=== PATIENT | female | born 1935 | race Caucasian/White ===

== ENCOUNTER 2018-11-12 07:45 | Inpatient (IN) | payer MEDICARE, OTHER ==
[2018-11-03 13:59] VITALS: BP 121/70
[2018-11-03 14:37] LABS: BASOPHIL % 0.2 % (0.0-0.2); EOSINOPHIL # 0.1 10^3/uL (0.0-0.2); HEMOGLOBIN 15.4 g/dL (12.0-15.0); LYMPHOCYTES # 0.9 10^3/uL (1.0-4.8); LYMPHOCYTES % 9.4 % (24.0-44.0); MEAN CELL HGB 27.7 pg (26-34); MEAN CELL HGB CONCENTRATION 34.1 g/dL (33-37); MEAN CORP VOLUME 81.1 fL (78-100); MEAN PLATELET VOLUME 10.2 fL (7.8-11.0); MONOCYTES # 0.8 10^3/uL (0.3-0.8); MONOCYTES % 8.3 % (5.0-12.0); NEUTROPHIL # 7.7 10^3/uL (1.8-7.7); NEUTROPHILS % 80.4 % (41.0-85.0); RED CELL DISTRIBUTION WIDTH 17.7 % (11.5-14.5); WHITE BLOOD CELL 9.6 10^3/uL (4.5-11.0)
[2018-11-03 15:00] LABS: CALCIUM 8.6 mg/dL (8.4-10.5)
[2018-11-12] VITALS (9 sets, daily range): BP systolic 116–144; BP diastolic 47–90
[~2018-11-12] VITALS: Ht 162.6 cm; Wt 57.2 kg
[2018-11-12] MEDS: LACTATED RINGERS 1,000 ML IV SCH ×2 (06:05→21:52)
[2018-11-12 06:13] LABS: BILIRUBIN,URINE NEGATIVE (NEGATIVE); UROBILINOGEN,URINE NORMAL (NEGATIVE)
[2018-11-12 06:23] LABS: UA COLOR YELLOW (YELLOW)
[2018-11-12 06:24] LABS: APPEARANCE,URINE CLEAR (CLEAR)
[~2018-11-12 07:45] MED LIST: ACET500T73 PO; ALBU1.25 IH; ALBU2.5V12 IH; AMOX1TAB12 PO; ANCEF 2 GM/D5W 50ML 50 ML IV ONE; BENZ100C PO; CYCL10TA2 PO; DECADRON ONE; DILAUDID ONE; DIPRIVAN IV ONE; LIDOCAINE 2% VIAL ONE; MOME220A9 IH; NEOSTIGMINE ONE; NS 100ML 100 ML IV ONE; NS 250ML 250 ML IV ONE; NS 3000ML IRR IR ONE; OXYC10TA2 PO; PRECEDEX IV ONE; SENSORCAINE 0.5% VIAL ONE; SERT50TA PO; SIMV20TA PO; SODIUM CHLORIDE IR ONE; SUBLIMAZE ONE; TORADOL ONE; TRAM-47 PO; TRANEXAMIC ACID IV ONE; UMEC1DIS IH; VARE1TAB20 PO; ZEMURON IV ONE; ZOFRAN ONE
[2018-11-12] MEDS ORDERED: SODIUM CHLORIDE IR ONE (09:30)
[2018-11-12] MEDS ORDERED: TRANEXAMIC ACID IV ONE (11:11)
[2018-11-12] MEDS ORDERED: LACTATED RINGERS 1,000 ML ONE (11:42)
[2018-11-12] MEDS ORDERED: PHENERGAN IV PRN (12:30)
[2018-11-12] MEDS ORDERED: DILAUDID IV PRN (12:30)
[2018-11-12] MEDS ORDERED: VENTOLIN IH PRN (12:30)
[2018-11-12] MEDS: TYLENOL PO SCH ×2 (12:30→17:29)
[2018-11-12] MEDS ORDERED: SUBLIMAZE IV PRN (12:30)
[2018-11-12] MEDS ORDERED: LACTATED RINGERS 1,000 ML IV SCH (12:30)
[2018-11-12] MEDS ORDERED: ZOFRAN IV PRN (12:30)
[2018-11-12] MEDS ORDERED: CEPACOL SORE THROAT LOZENGE MM PRN (12:30)
--- NOTE | 2018-11-12 12:33 | DIREP ---
PROCEDURE:XRAY HIP MIN 2VW-LT COMPARISON:None. INDICATIONS:POST TOTAL LEFT HIP FINDINGS: BONES:No fractures. JOINTS:The patient has had left hip arthroplasty with cemented femoral prosthesis. The hardware is in good position. SOFT TISSUES:Air is present in the lateral soft tissues. Lateral skin marcelino are in place. There are scattered calcific densities in the left gluteal region consistent with injection granulomas. OTHER:Prior lumbar spine surgery with pedicle screw identified. CONCLUSION:The patient has had left hip arthroplasty with no complications. Dictated by: Venu Russ M.D. on 11/12/2018 at 12:30 PM
--- NOTE | 2018-11-12 12:36 | HPH ---
ADMIT DATE: 11/12/2018 HISTORY OF PRESENT ILLNESS: An 83-year-old female who had open reduction and internal fixation of a left intertrochanteric hip fracture in 08/2014. 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 She was having severe pain with ambulation. The patient's intertrochanteric hip fracture healed. PAST MEDICAL HISTORY: The patient's medical problems include COPD. She also has a history of cigarette abuse. MEDICATIONS: Include Chantix, Zocor 20 mg a day, Zoloft 50 mg once a day, Advair, calcium and vitamin D as well as vitamin C. PREVIOUS SURGICAL PROCEDURES: Include back surgery x 2, tonsillectomy, cholecystectomy, left rotator cuff repair, ORIF left hip as above. ALLERGIES: THE PATIENT IS ALLERGIC TO MORPHINE. SOCIAL HISTORY: The patient lives on the [facility]. She states that she smoked 1 pack of cigarettes a day for 65 years, but stopped smoking about 2-1/2 months ago. She drinks one glass of wine a day. REVIEW OF SYSTEMS: Positive for occasional shortness of breath. She has to use a walker to ambulate because of pain. Otherwise negative for chest pain, nausea, vomiting, melena, hematochezia, dysuria, hematuria, fever, chills, or weight loss. FAMILY HISTORY: Unknown. PHYSICAL EXAMINATION: GENERAL: Shows a 5 feet 4 inches, 136 pounds. An 83-year-old female in no acute distress. HEENT: Within normal limits for her age. CHEST: Her chest has mild wheezes, but generally clear to auscultation bilaterally. HEART: Regular rate and rhythm. ABDOMEN: Soft, nontender, good bowel sounds. EXTREMITIES: Left hip can be flexed to 90 degrees. She has no internal or external rotation. Mild shortening. NEUROLOGIC: The patient is awake and alert. She is oriented x 3. Cranial nerves 2-12 are grossly intact. She has 5/5 strength of all lower extremities bilaterally, symmetric for her age. IMAGING STUDIES: The x-rays show that she has avascular necrosis of the femoral head with collapse and impingement in the acetabulum of her internal fixation screws. Otherwise, her intertrochanteric fracture is healed. ASSESSMENT: 1. Avascular necrosis, left femoral head. 2. Complication of deep hardware. PLAN: The patient is admitted for deep hardware removal as well as bipolar arthroplasty. She was evaluated by Dr. Vieyra preoperatively. The risks and hazards of the procedures have been discussed with the family and they are in agreement. Ozzie Churchill MD DR: KAYLEIGH/abril JOB# [id number]
--- NOTE | 2018-11-12 12:52 | OPH ---
DATE OF SURGERY: 11/12/2018 PREOPERATIVE DIAGNOSES: 1. Avascular necrosis, left femoral head. 2. Complication of mechanical internal device, left hip. POSTOPERATIVE DIAGNOSES: 1. Avascular necrosis, left femoral head. 2. Complication of mechanical internal device, left hip. OPERATIVE PROCEDURES: 1. Deep hardware removal, left femur. 2. Bipolar arthroplasty, left hip using Medacta AMIS cemented size 0, femoral stem with a 28 mm cobalt chrome head and a 48 bipolar cup. SURGEON: Ozzie Churchill MD. ANESTHESIA: General endotracheal. BLOOD LOSS: 600 mL. DRAINS: None. DESCRIPTION OF INDICATIONS: The patient is an 83-year-old female with avascular necrosis of the left femoral head following ORIF of an intertrochanteric fracture of her left hip in 2013. The fracture is healed; however, the head developed avascular necrosis with collapse. The patient had severe pain with any types of ambulation and therefore was taken to the operating room for the above procedure. DESCRIPTION OF PROCEDURE: The patient was placed on the operating table in the supine position. General endotracheal anesthetic was induced without difficulty. The patient had the left distal femur and knee prepped sterilely and draped. Using the C-arm, we located the two distal interlocking screws and made two small stab holes and removed both of the distal interlocking screws. The wounds were irrigated and closed with marcelino and a compressive dressing was applied. The patient then had the left foot and ankle well padded and placed in the traction boot. The patient then had the traction boot attached to the MIS leg extension. Left lower extremity was then sterilely prepped and draped. We made an incision about the lateral tips of the two screws at the base of the greater trochanter and removed the two screws without incident. The bleeding was controlled with cautery. The IT band was closed with a #1 Vicryl in an interrupted manner. The subcutaneous was closed with a 2-0 Monocryl after being thoroughly irrigated. The skin was closed with marcelino. We then made a second incision about the tip of the greater trochanter through the skin and subcutaneous tissues. Bleeding was controlled with cautery. The patient had the IT band opened in line with the skin incision. The tip of the claudia was identified and the soft tissue was cleared. The claudia extractor was then screwed into the proximal tip of the claudia and then removed without incident. The wounds were irrigated and closed with #1 Vicryl for the IT band. The subcutaneous was closed with 2-0 Monocryl and the skin was closed with marcelino. The patient then had the anterior incision made about the hip. The incision was taken through the skin and the subcutaneous tissues. Bleeding was controlled with cautery. Tensor fascia was opened and the muscle belly was reflected laterally. The patient had the rectus fascia opened. The rectus muscle was retracted medially. The circumflex vessels were identified and coagulated with the Aquamantys device. The patient then had the fat pad of the capsule excised anteriorly. The capsular incision was incised and the capsule was retracted proximally and laterally. The patient then had the femoral neck cut made. The head was removed with a corkscrew device. The patient then had the proximal femur opened with a curette as well as a box chisel once the hip was placed in maximal external rotation. The acetabulum had been sized and the size 48 bipolar cup had good coverage and was stable. The patient then had the proximal femur opened with the starter rasp. Because of the previous claudia, the patient's canal medially was very hard and sclerotic from the intramedullary claudia that was placed. We were able to rasp the femur up to a size 0. We did a trial reduction with a 0 stem and a neutral neck length with the 48 bipolar cup. There was good stability. The patient then had the trial components removed. The proximal femur was irrigated and the cement plug was placed at 12 cm. The cement was introduced and packed. The patient had a size 0 femoral stem cemented. Again the trial reduction done with a trial head and neck and there was good stability. The patient had a size 28 mm neutral neck length with the 48 bipolar cup impacted onto the Bergman taper neck once the cement had hardened. Any excess cement around the trochanter was removed. The final x-rays showed satisfactory positioning of the hardware and satisfactory leg length. The capsule was then closed with a #2 PDS in an interrupted manner. The tensor fascia was closed with a #2 PDS barbed in a running manner and the subcutaneous was closed with 2-0 Monocryl in a running manner. The skin was closed with marcelino. The patient had the wounds covered with Aquacel dressings. She was extubated in the operating room and sent to recovery in stable condition. Ozzie Churchill MD DR: KAYLEIGH/abril JOB# [id number]
[2018-11-12] MEDS ORDERED: NS 100ML 100 ML IV ONE (12:58)
--- NOTE | 2018-11-12 13:29 | PRM.PN ---
Subjective Subjective Date: Nov 12, 2018 Time: 13:28 Subjective Awake and alert VSS NVM+ Stable Patient History: Alzheimer's disease 32 MOTHER, , Age:94 33 FATHER, , Age:92 Cerebrovascular disorder G8 BROTHER, Degenerative joint disease V19 CHILD Diabetes mellitus V19 CHILD V19 CHILD V19 CHILD FH: arthritis V19 CHILD FH: liver cancer G8 SISTER, , Age:50 FH: pancreatic cancer G8 SISTER, , Age:50 GERD V19 CHILD High cholesterol V19 CHILD No known health problems G8 BROTHER G8 BROTHER G8 BROTHER No Family History of: Asthma Chronic obstructive pulmonary disease Congestive heart failure Diabetes insipidus Hypertension Parkinson's disease VTE VTE Risk Total Score: 5 VTE Risk Score VTE Risk: Score 0-1 = Low Risk (Aggressive mobilization; early ambulation; no VTE prophylaxis required) Score 2: Moderate Risk (Intermittent/Pneumatic Compression Device OR Lovenox/Heparin/Coumadin) Score 3-4: High Risk (Intermittent/Pneumatic Compression Device AND Lovenox/Heparin/Coumadin) Score > or =5: Highest Risk (Intermittent/Pneumatic Compression Device AND Lovenox/Heparin/Coumadin) Review of Systems Allergies: Coded Allergies: morphine (Verified Allergy, Unknown, NAUSEA,VOMITING, 11/03/18) Scheduled Albuterol Sulfate (Albuterol Sulfate), 2.5 MG IH BID, (Reported) Albuterol Sulfate (Albuterol Sulfate), 1.25 MG IH BID, (Reported) Cyclobenzaprine Hcl (Flexeril), 1 TAB PO BID, (Reported) Mometasone Furoate (Asmanex), 2 PUFF IH BID, (Reported) Oxycodone Hcl (Oxycodone Hcl), 1 TAB PO BID, (Reported) Sertraline Hcl (Zoloft), 1 TAB PO DAILY, (Reported) Simvastatin (Zocor), 1 TAB PO HS, (Reported) Umeclidinium Brm/Vilanterol Tr (Anoro Ellipta 62.5-25 Mcg INH), 1 EACH IH DAILY24, (Reported) Varenicline Tartrate (Chantix), 1 EACH PO BID, (Reported) Scheduled PRN Acetaminophen (Acetaminophen), 2 TAB PO DAILY24 PRN for PAIN, (Reported) Tramadol Hcl (Ultram), 1 TAB PO BID PRN for PAIN, (Reported) Discontinued Medications Amoxicillin/Potassium Clav (Amox Tr-K Clv 875-125 Mg Tab), 1 TAB PO BID, ( Reported) Discontinued Reason: No Longer Taking Benzonatate (Tessalon Perle), 1 CAP PO TID, (Reported) Discontinued Reason: No Longer Taking Objective Vitals and I/O Vital Sign - Last 24 Hours 11/12/18 11/12/18 11/12/18 11/12/18 05:50 05:50 07:15 07:20 Temp 99.1 99.1 Pulse 115 89 98 Resp 18 18 18 B/P (MAP) 121/72 (88) 134/80 (98) 116/47 (70) Pulse Ox 94 90 95 O2 Delivery Room Air Room Air Nasal Canula Nasal Canula O2 Flow Rate 3 3 11/12/18 11/12/18 11/12/18 11/12/18 07:25 12:07 12:07 12:22 Temp 98.2 98.6 98.2 98.6 Pulse 87 92 85 Resp 18 16 18 B/P (MAP) 119/64 (82) 139/89 (106) 144/82 (102) Pulse Ox 95 97 93 O2 Delivery Nasal Canula Non-Rebreather Nasal Canula O2 Flow Rate 3 10 10 3 11/12/18 11/12/18 12:36 12:52 Temp 99 99.2 99.0 99.2 Pulse 110 97 Resp 18 18 B/P (MAP) 125/90 (102) 125/81 (96) Pulse Ox 93 93 O2 Delivery Nasal Canula Nasal Canula O2 Flow Rate 3 3 All Results(Lab/Rad) Laboratory Tests Test 11/12/18 04:30 Urine Collection Type VOID Urine Color YELLOW Urine Appearance CLEAR Urine Bilirubin NEGATIVE MG/DL Urine Ketones NEGATIVE Urine Specific [place] 1.010 Urine pH 6 Urine Protein NEGATIVE Urine Urobilinogen NORMAL Urine Nitrate NEGATIVE Urine Leukocyte Esterase 100/ul 1+ Urine Blood 10 TR Urine RBC 0-2 RBC/HPF Urine WBC 2-5 WBC/HPF Urine Squamous Epithelial Cells MANY #/HPF Urine Bacteria NONE SEEN Urine Glucose NORMAL Current Medications Medications (Trade) Dose Ordered Sig/Lianna Route PRN Reason Start Time Stop Time Status Last Admin Dose Admin Sodium Chloride 100 ml @ ud STK-MED ONCE IV 11/12/18 05:14 11/12/18 05:16 DC Cefazolin Sodium/ Dextrose 50 ml @ ud STK-MED ONCE IV 11/12/18 05:15 11/12/18 05:17 DC Neostigmine Methylsulfate (Neostigmine) 10 mg STK-MED ONCE .ROUTE 11/12/18 06:47 11/12/18 06:49 DC Ondansetron HCl (Zofran) 4 mg STK-MED ONCE .ROUTE 11/12/18 06:47 11/12/18 06:49 DC Ketorolac Tromethamine (Toradol) 30 mg STK-MED ONCE .ROUTE 11/12/18 06:47 11/12/18 06:49 DC Rocuronium [place] (Zemuron) 100 mg STK-MED ONCE IV 11/12/18 06:47 11/12/18 06:49 DC Hydromorphone HCl (Dilaudid) 2 mg STK-MED ONCE .ROUTE 11/12/18 06:47 11/12/18 06:49 DC Fentanyl Citrate (Sublimaze) 100 mcg STK-MED ONCE .ROUTE 11/12/18 06:48 11/12/18 06:50 DC Propofol (Diprivan) 200 mg STK-MED ONCE IV 11/12/18 06:48 11/12/18 06:50 DC Dexamethasone Sodium Phosphate (Decadron) 20 mg STK-MED ONCE .ROUTE 11/12/18 06:48 11/12/18 06:50 DC Bupivacaine HCl (Sensorcaine 0.5% Vial) 5 mg STK-MED ONCE .ROUTE 11/12/18 06:48 11/12/18 06:50 DC Lidocaine HCl (Lidocaine 2% Vial) 500 mg STK-MED ONCE .ROUTE 11/12/18 06:49 11/12/18 06:50 DC Dexmedetomidine HCl (Precedex) 200 mcg STK-MED ONCE IV 11/12/18 06:49 11/12/18 06:51 DC Sodium Chloride (Sodium Chloride) 1,000 ml STK-MED ONCE IR 11/12/18 07:29 11/12/18 07:31 DC Sodium Chloride 100 ml @ ud STK-MED ONCE IV 11/12/18 07:29 11/12/18 07:31 DC Sodium Chloride 250 ml @ ud STK-MED ONCE IV 11/12/18 07:29 11/12/18 07:31 DC Sodium Chloride (NS 3000ml Irr) 3,000 ml STK-MED ONCE IR 11/12/18 07:29 11/12/18 07:31 DC Tranexamic Acid (Tranexamic Acid) 1,000 mg STK-MED ONCE IV 11/12/18 07:41 11/12/18 07:43 DC Sodium Chloride (Sodium Chloride) 1,000 ml STK-MED ONCE IR 11/12/18 09:30 11/12/18 09:32 DC Tranexamic Acid (Tranexamic Acid) 1,000 mg STK-MED ONCE IV 11/12/18 11:11 11/12/18 11:13 DC Acetaminophen (Tylenol) 1,000 mg Q6H PO 11/12/18 12:30 12/12/18 12:29 UNV Celecoxib (Celebrex) 200 mg Q12HR PO 11/12/18 21:00 11/12/18 21:01 UNV Gabapentin (Neurontin) 400 mg Q24HRS PO 11/13/18 12:30 11/13/18 12:31 UNV Hydromorphone HCl (Dilaudid) 0.2 mg Q5MIN PRN IV PAIN MILD 11/12/18 12:30 11/13/18 12:29 UNV Fentanyl Citrate (Sublimaze) 12.5 mcg Q5MIN PRN IV PAIN 11/12/18 12:30 11/13/18 12:29 UNV Ondansetron HCl (Zofran) 4 mg PRN PRN IV nv 11/12/18 12:30 11/17/18 12:29 UNV Promethazine HCl (Phenergan) 6.25 mg PRN PRN IV NAUSEA / VOMITING 11/12/18 12:30 11/17/18 12:29 UNV Albuterol Sulfate (Ventolin) 2.5 mg OT PRN IH WHEEZING 11/12/18 12:30 11/17/18 12:29 UNV Tramadol HCl (Ultram) 50 mg Q6H PRN PO MILD PAIN 11/12/18 12:30 12/12/18 12:29 UNV Tramadol HCl (Ultram) 100 mg Q6H PRN PO SEVERE PAIN 11/12/18 12:30 12/12/18 12:29 UNV Rivaroxaban (Xarelto) 10 mg DAILY PO 11/14/18 09:00 12/14/18 08:59 UNV Docusate Sodium (Colace) 100 mg DAILY PO 11/13/18 09:00 12/13/18 08:59 UNV Throat Lozenges (Cepacol Sore Throat Lozenge) 1 each PRN PRN MM SORE THROAT 11/12/18 12:30 12/12/18 12:29 UNV Famotidine (Pepcid) 20 mg DAILY PO 11/13/18 09:00 12/13/18 08:59 UNV Cefazolin Sodium/ Dextrose (Ancef 2 Gm/D5W 50ml) 2 gm Q8 IV 11/12/18 14:00 11/13/18 06:01 UNV Ketorolac Tromethamine (Toradol) 30 mg Q6HR PRN IV PAIN 11/12/18 12:30 11/17/18 12:29 UNV Sodium Chloride 100 ml @ ud STK-MED ONCE IV 11/12/18 12:58 11/12/18 13:00 DC Course Vitals & review Data Vital Sign - Last 24 Hours 11/12/18 11/12/18 11/12/18 11/12/18 05:50 05:50 07:15 07:20 Temp 99.1 99.1 Pulse 115 89 98 Resp 18 18 18 B/P (MAP) 121/72 (88) 134/80 (98) 116/47 (70) Pulse Ox 94 90 95 O2 Delivery Room Air Room Air Nasal Canula Nasal Canula O2 Flow Rate 3 3 11/12/18 11/12/18 11/12/18 11/12/18 07:25 12:07 12:07 12:22 Temp 98.2 98.6 98.2 98.6 Pulse 87 92 85 Resp 18 16 18 B/P (MAP) 119/64 (82) 139/89 (106) 144/82 (102) Pulse Ox 95 97 93 O2 Delivery Nasal Canula Non-Rebreather Nasal Canula O2 Flow Rate 3 10 10 3 11/12/18 11/12/18 12:36 12:52 Temp 99 99.2 99.0 99.2 Pulse 110 97 Resp 18 18 B/P (MAP) 125/90 (102) 125/81 (96) Pulse Ox 93 93 O2 Delivery Nasal Canula Nasal [place]ula O2 Flow Rate 3 3 Laboratory Tests Test 11/12/18 04:30 Urine Collection Type VOID Urine Color YELLOW Urine Appearance CLEAR Urine Bilirubin NEGATIVE MG/DL Urine Ketones NEGATIVE Urine Specific [place] 1.010 Urine pH 6 Urine Protein NEGATIVE Urine Urobilinogen NORMAL Urine Nitrate NEGATIVE Urine Leukocyte Esterase 100/ul 1+ Urine Blood 10 TR Urine RBC 0-2 RBC/HPF Urine WBC 2-5 WBC/HPF Urine Squamous Epithelial Cells MANY #/HPF Urine Bacteria NONE SEEN Urine Glucose NORMAL Current Medications Medications (Trade) Dose Ordered Sig/Lianna PRN Reason Start Time Stop Time Status Last Admin Acetaminophen (Tylenol) 1,000 mg Q6H 11/12/18 12:30 12/12/18 12:29 UNV Albuterol Sulfate (Ventolin) 2.5 mg OT PRN WHEEZING 11/12/18 12:30 11/17/18 12:29 UNV Cefazolin Sodium/ Dextrose (Ancef 2 Gm/D5W 50ml) 2 gm Q8 11/12/18 14:00 11/13/18 06:01 UNV Celecoxib (Celebrex) 200 mg Q12HR 11/12/18 21:00 11/12/18 21:01 UNV Docusate Sodium (Colace) 100 mg DAILY 11/13/18 09:00 12/13/18 08:59 UNV Famotidine (Pepcid) 20 mg DAILY 11/13/18 09:00 12/13/18 08:59 UNV Fentanyl Citrate (Sublimaze) 12.5 mcg Q5MIN PRN PAIN 11/12/18 12:30 11/13/18 12:29 UNV Gabapentin (Neurontin) 400 mg Q24HRS 11/13/18 12:30 11/13/18 12:31 UNV Hydromorphone HCl (Dilaudid) 0.2 mg Q5MIN PRN PAIN MILD 11/12/18 12:30 11/13/18 12:29 UNV Ketorolac Tromethamine (Toradol) 30 mg Q6HR PRN PAIN 11/12/18 12:30 11/17/18 12:29 UNV Ondansetron HCl (Zofran) 4 mg PRN PRN nv 11/12/18 12:30 11/17/18 12:29 UNV Promethazine HCl (Phenergan) 6.25 mg PRN PRN NAUSEA / VOMITING 11/12/18 12:30 11/17/18 12:29 UNV Rivaroxaban (Xarelto) 10 mg DAILY 11/14/18 09:00 12/14/18 08:59 UNV Throat Lozenges (Cepacol Sore Throat Lozenge) 1 each PRN PRN SORE THROAT 11/12/18 12:30 12/12/18 12:29 UNV Tramadol HCl (Ultram) 50 mg Q6H PRN MILD PAIN 11/12/18 12:30 12/12/18 12:29 UNV Tramadol HCl (Ultram) 100 mg Q6H PRN SEVERE PAIN 11/12/18 12:30 12/12/18 12:29 UNV O2 Sat by Pulse Oximetry: 93 Oxygen Flow Rate: 3 STEPHEN CANNON MD Nov 12, 2018 13:29
[2018-11-12] MEDS ORDERED: ANCEF 2 GM/D5W 50ML IV SCH (14:00)
[2018-11-12] MEDS: ANCEF 2 GM/D5W 50ML 50 ML IV SCH ×2 (14:17→21:53)
[2018-11-12] MEDS: ULTRAM PO PRN (15:45)
[2018-11-12 16:15] LABS: HEMOGLOBIN 12.7 g/dL (12.0-15.0); MEAN CELL HGB 27.3 pg (26-34); MEAN CELL HGB CONCENTRATION 33.1 g/dL (33-37); MEAN CORP VOLUME 82.4 fL (78-100); MEAN PLATELET VOLUME 9.9 fL (7.8-11.0); RED CELL DISTRIBUTION WIDTH 16.9 % (11.5-14.5); WHITE BLOOD CELL 14.1 10^3/uL (4.5-11.0)
[2018-11-12] MEDS ORDERED: CELEBREX ONE (19:55)
--- NOTE | 2018-11-12 20:00 | NUR ---
PATIENT AWAKE AND ALERT LYING IN BED. DAUGHTER AT BEDSIDE. PATIENT REPORTS PAIN IS A 5. REPORTS SHE ATTEMPTED TO GET UP WITH PHYSICAL THERAPY TODAY BUT WAS UNABLE. PATIENT STATES "I WAS JUST TOO WEAK AND I JUST COULD NOT EVEN STAND UP ON MY GOOD LEG." DRESSING CLEAN DRY AND INTACT. IV PATENT IN RT WRIST WITH LR INFUSING AT 100CC/HR VIA PUMP. NEGATIVE S/S INFILTRATION PRESENT. PATIENT WITH 02 PER NC AT 1L. HUERTA PATENT AND DRAINING YELLOW URINE. SECURED TO RIGHT THIGH. TELE [address] SPECIAL VS COMPLETED AND STABLE. NO DISTRESS NOTED AND PATIENT DENIES UNMET NEEDS.
[2018-11-12] MEDS: TORADOL IV PRN (20:02)
[2018-11-12] MEDS ORDERED: CELEBREX PO SCH (21:00)
--- NOTE | 2018-11-13 | NUR ---
PATIENT SLEEPING WITHOUT S/S DISTRESS. AWAKENS EASILY AND DENIES PAIN OR DISCOMFORT. DAUGHTER SLEEPING AT BEDSIDE.
[2018-11-13] MEDS: TYLENOL PO SCH ×5 (00:30→23:53)
[2018-11-13 00:51] VITALS: BP 118/88
[2018-11-13 05:38] LABS: HEMOGLOBIN 10.9 g/dL (12.0-15.0); MEAN CELL HGB 26.9 pg (26-34); MEAN CELL HGB CONCENTRATION 32.6 g/dL (33-37); MEAN CORP VOLUME 82.5 fL (78-100); RED CELL DISTRIBUTION WIDTH 16.8 % (11.5-14.5); WHITE BLOOD CELL 9.6 10^3/uL (4.5-11.0)
--- NOTE | 2018-11-13 07:00 | NUR ---
PATIENT HAS SLEPT WITHOUT NEED FOR ADDITIONAL PAIN MEDS THIS SHIFT. PATIENT AWAKENS AND SMILES AND EXPRESSES COMFORT AND RETURNS TO SLEEP. NO DISTRESS NOTED.
[2018-11-13] MEDS: ANCEF 2 GM/D5W 50ML 50 ML IV SCH (07:03)
--- NOTE | 2018-11-13 07:48 | NUR ---
REPORT RECEIVED REPORT, ASSUMED CARE FOR PATIENT AT THIS TIME.
[2018-11-13 08:43] VITALS: BP 112/72
[2018-11-13] MEDS: PEPCID PO SCH (08:46)
[2018-11-13] MEDS: COLACE PO SCH (08:46)
[2018-11-13] MEDS: ULTRAM PO PRN ×2 (09:33→14:39)
--- NOTE | 2018-11-13 11:26 | NUR ---
DISCHARGE PLANNING CM VISITED WITH PATIENT AND DAUGHTER REGARDING D/C NEEDS. PATIENT STATES SHE WAS PREVIOUSLY INDEPENDENT OF ADLS. STATED SHE LIVED AT HOME IN [place] ALONE. SHE IS ONLY HERE TO GET HER SURGERY AND SHE WILL GO BACK TO [place]. SHE DOES HAVE DME IN PLACE INCLUDING A WALKER. SHE STATE SHE WOULD LIKE TO GO TO [place] SWING BED ON D/C, CHOICE LETTER SIGNED AND PLACED IN CHART. REFERRAL SENT AND PENDING APPROVAL. D/C GOAL IS FOR PATIENT TO D/C TO [facility] FOR THERAPY SERVICES. UPON D/C NURSE WILL NEED TO CALL REPORT TO THE CHARGE NURSE @ [phone]. PATIENT DENIES FURTHER NEEDS AT THIS TIME. CM WILL CONTINUE TO FOLLOW PT FOR ANY FURTHER NEEDS.
[2018-11-13] MEDS ORDERED: NEURONTIN PO SCH (12:30)
[2018-11-13 12:32] VITALS: BP 115/68
--- NOTE | 2018-11-13 13:50 | NUR ---
Anesthesia Post Op Visit Ms. Barajas had a Left Fascia Iliaca Block for a Left Hip Replacement Yesterday. I visited with her and she said she had full sensation in her leg and foot, had been ambulating quite a bit today and at the most, her pain rated a 3. She has taken P.O. pain medications but very few and is very happy with her post op course. No indications of redness swelling or pain at injection site. No apparent post anesthetic or block complications
[2018-11-13 18:19] VITALS: BP 149/86
--- NOTE | 2018-11-13 18:26 | NUR ---
report received report from offgoing shift
[2018-11-13 19:33] VITALS: BP 120/65
--- NOTE | 2018-11-13 20:05 | NUR ---
ambulated pt ambulated at this time down the hallway accompanied by nurse and family member. Pt. walked fairly
[2018-11-14 00:52] VITALS: BP 126/73
[2018-11-14 04:25] VITALS: BP 126/66
[2018-11-14] MEDS: LACTATED RINGERS 1,000 ML IV SCH (05:53)
[2018-11-14] MEDS: TYLENOL PO SCH ×4 (05:54→23:42)
[2018-11-14 06:34] LABS: MEAN CELL HGB 27.3 pg (26-34); MEAN CELL HGB CONCENTRATION 32.7 g/dL (33-37); MEAN CORP VOLUME 83.6 fL (78-100); MEAN PLATELET VOLUME 10.1 fL (7.8-11.0); RED CELL DISTRIBUTION WIDTH 17.2 % (11.5-14.5)
--- NOTE | 2018-11-14 07:03 | NUR ---
REPORT RECEIVED REPORT, ASSUMED CARE FOR PATIENT AT THIS TIME.
--- NOTE | 2018-11-14 08:00 | NUR ---
HUERTA DISCONTINUED AT THIS TIME.
--- NOTE | 2018-11-14 08:40 | NUR ---
PATIENT VOIDED 400CC AT THIS TIME.
[2018-11-14] MEDS: COLACE PO SCH (09:00)
--- NOTE | 2018-11-14 09:03 | PRM.PN ---
Subjective Subjective Date: Nov 14, 2018 Time: 09:03 Subjective Awake and alert VSS NVM+ Stable 11/13 Pain ok in bed VSS NVM+ HGB 10.9 postop anemia from blood loss expected Start PT 11/14 Making progress with PT VSS HGB 10 Dressing ok Cont with PT Patient History: Alzheimer's disease 32 MOTHER, , Age:94 33 FATHER, , Age:92 Cerebrovascular disorder G8 BROTHER, Degenerative joint disease V19 CHILD Diabetes mellitus V19 CHILD V19 CHILD V19 CHILD FH: arthritis V19 CHILD FH: liver cancer G8 SISTER, , Age:50 FH: pancreatic cancer G8 SISTER, , Age:50 GERD V19 CHILD High cholesterol V19 CHILD No known health problems G8 BROTHER G8 BROTHER G8 BROTHER No Family History of: Asthma Chronic obstructive pulmonary disease Congestive heart failure Diabetes insipidus Hypertension Parkinson's disease VTE VTE Risk Total Score: 5 VTE Risk Score VTE Risk: Score 0-1 = Low Risk (Aggressive mobilization; early ambulation; no VTE prophylaxis required) Score 2: Moderate Risk (Intermittent/Pneumatic Compression Device OR Lovenox/Heparin/Coumadin) Score 3-4: High Risk (Intermittent/Pneumatic Compression Device AND Lovenox/Heparin/Coumadin) Score > or =5: Highest Risk (Intermittent/Pneumatic Compression Device AND Lovenox/Heparin/Coumadin) Review of Systems Allergies: Coded Allergies: morphine (Verified Allergy, Unknown, NAUSEA,VOMITING, 11/03/18) Scheduled Albuterol Sulfate (Albuterol Sulfate), 2.5 MG IH BID, (Reported) Albuterol Sulfate (Albuterol Sulfate), 1.25 MG IH BID, (Reported) Cyclobenzaprine Hcl (Flexeril), 1 TAB PO BID, (Reported) Mometasone Furoate (Asmanex), 2 PUFF IH BID, (Reported) Oxycodone Hcl (Oxycodone Hcl), 1 TAB PO BID, (Reported) Sertraline Hcl (Zoloft), 1 TAB PO DAILY, (Reported) Simvastatin (Zocor), 1 TAB PO HS, (Reported) Umeclidinium Brm/Vilanterol Tr (Anoro Ellipta 62.5-25 Mcg INH), 1 EACH IH DAILY24, (Reported) Varenicline Tartrate (Chantix), 1 EACH PO BID, (Reported) Scheduled PRN Acetaminophen (Acetaminophen), 2 TAB PO DAILY24 PRN for PAIN, (Reported) Tramadol Hcl (Ultram), 1 TAB PO BID PRN for PAIN, (Reported) Discontinued Medications Amoxicillin/Potassium Clav (Amox Tr-K Clv 875-125 Mg Tab), 1 TAB PO BID, ( Reported) Discontinued Reason: No Longer Taking Benzonatate (Tessalon Perle), 1 CAP PO TID, (Reported) Discontinued Reason: No Longer Taking Objective Vitals and I/O Vital Sign - Last 24 Hours 11/12/18 11/12/18 11/12/18 11/12/18 05:50 05:50 07:15 07:20 Temp 99.1 99.1 Pulse 115 89 98 Resp 18 18 18 B/P (MAP) 121/72 (88) 134/80 (98) 116/47 (70) Pulse Ox 94 90 95 O2 Delivery Room Air Room Air Nasal [place] Nasal [place]ula O2 Flow Rate 3 3 11/12/18 11/12/18 11/12/18 11/12/18 07:25 12:07 12:07 12:22 Temp 98.2 98.6 98.2 98.6 Pulse 87 92 85 Resp 18 16 18 B/P (MAP) 119/64 (82) 139/89 (106) 144/82 (102) Pulse Ox 95 97 93 O2 Delivery Nasal [place] Non-Rebreather Nasal [place] O2 Flow Rate 3 10 10 3 11/12/18 11/12/18 12:36 12:52 Temp 99 99.2 99.0 99.2 Pulse 110 97 Resp 18 18 B/P (MAP) 125/90 (102) 125/81 (96) Pulse Ox 93 93 O2 Delivery Nasal [place] Nasal [place] O2 Flow Rate 3 3 All Results(Lab/Rad) Laboratory Tests Test 11/12/18 04:30 Urine Collection Type VOID Urine Color YELLOW Urine Appearance CLEAR Urine Bilirubin NEGATIVE MG/DL Urine Ketones NEGATIVE Urine Specific [place] 1.010 Urine pH 6 Urine Protein NEGATIVE Urine Urobilinogen NORMAL Urine Nitrate NEGATIVE Urine Leukocyte Esterase 100/ul 1+ Urine Blood 10 TR Urine RBC 0-2 RBC/HPF Urine WBC 2-5 WBC/HPF Urine Squamous Epithelial Cells MANY #/HPF Urine Bacteria NONE SEEN Urine Glucose NORMAL Current Medications Medications (Trade) Dose Ordered Sig/Lianna Route PRN Reason Start Time Stop Time Status Last Admin Dose Admin Sodium Chloride 100 ml @ ud STK-MED ONCE IV 11/12/18 05:14 11/12/18 05:16 DC Cefazolin Sodium/ Dextrose 50 ml @ ud STK-MED ONCE IV 11/12/18 05:15 11/12/18 05:17 DC Neostigmine Methylsulfate (Neostigmine) 10 mg STK-MED ONCE .ROUTE 11/12/18 06:47 11/12/18 06:49 DC Ondansetron HCl (Zofran) 4 mg STK-MED ONCE .ROUTE 11/12/18 06:47 11/12/18 06:49 DC Ketorolac Tromethamine (Toradol) 30 mg STK-MED ONCE .ROUTE 11/12/18 06:47 11/12/18 06:49 DC Rocuronium [place] (Zemuron) 100 mg STK-MED ONCE IV 11/12/18 06:47 11/12/18 06:49 DC Hydromorphone HCl (Dilaudid) 2 mg STK-MED ONCE .ROUTE 11/12/18 06:47 11/12/18 06:49 DC Fentanyl Citrate (Sublimaze) 100 mcg STK-MED ONCE .ROUTE 11/12/18 06:48 11/12/18 06:50 DC Propofol (Diprivan) 200 mg STK-MED ONCE IV 11/12/18 06:48 11/12/18 06:50 DC Dexamethasone Sodium Phosphate (Decadron) 20 mg STK-MED ONCE .ROUTE 11/12/18 06:48 11/12/18 06:50 DC Bupivacaine HCl (Sensorcaine 0.5% Vial) 5 mg STK-MED ONCE .ROUTE 11/12/18 06:48 11/12/18 06:50 DC Lidocaine HCl (Lidocaine 2% Vial) 500 mg STK-MED ONCE .ROUTE 11/12/18 06:49 11/12/18 06:50 DC Dexmedetomidine HCl (Precedex) 200 mcg STK-MED ONCE IV 11/12/18 06:49 11/12/18 06:51 DC Sodium Chloride (Sodium Chloride) 1,000 ml STK-MED ONCE IR 11/12/18 07:29 11/12/18 07:31 DC Sodium Chloride 100 ml @ ud STK-MED ONCE IV 11/12/18 07:29 11/12/18 07:31 DC Sodium Chloride 250 ml @ ud STK-MED ONCE IV 11/12/18 07:29 11/12/18 07:31 DC Sodium Chloride (NS 3000ml Irr) 3,000 ml STK-MED ONCE IR 11/12/18 07:29 11/12/18 07:31 DC Tranexamic Acid (Tranexamic Acid) 1,000 mg STK-MED ONCE IV 11/12/18 07:41 11/12/18 07:43 DC Sodium Chloride (Sodium Chloride) 1,000 ml STK-MED ONCE IR 11/12/18 09:30 11/12/18 09:32 DC Tranexamic Acid (Tranexamic Acid) 1,000 mg STK-MED ONCE IV 11/12/18 11:11 11/12/18 11:13 DC Acetaminophen (Tylenol) 1,000 mg Q6H PO 11/12/18 12:30 12/12/18 12:29 UNV Celecoxib (Celebrex) 200 mg Q12HR PO 11/12/18 21:00 11/12/18 21:01 UNV Gabapentin (Neurontin) 400 mg Q24HRS PO 11/13/18 12:30 11/13/18 12:31 UNV Hydromorphone HCl (Dilaudid) 0.2 mg Q5MIN PRN IV PAIN MILD 11/12/18 12:30 11/13/18 12:29 UNV Fentanyl Citrate (Sublimaze) 12.5 mcg Q5MIN PRN IV PAIN 11/12/18 12:30 11/13/18 12:29 UNV Ondansetron HCl (Zofran) 4 mg PRN PRN IV nv 11/12/18 12:30 11/17/18 12:29 UNV Promethazine HCl (Phenergan) 6.25 mg PRN PRN IV NAUSEA / VOMITING 11/12/18 12:30 11/17/18 12:29 UNV Albuterol Sulfate (Ventolin) 2.5 mg OT PRN IH WHEEZING 11/12/18 12:30 11/17/18 12:29 UNV Tramadol HCl (Ultram) 50 mg Q6H PRN PO MILD PAIN 11/12/18 12:30 12/12/18 12:29 UNV Tramadol HCl (Ultram) 100 mg Q6H PRN PO SEVERE PAIN 11/12/18 12:30 12/12/18 12:29 UNV Rivaroxaban (Xarelto) 10 mg DAILY PO 11/14/18 09:00 12/14/18 08:59 UNV Docusate Sodium (Colace) 100 mg DAILY PO 11/13/18 09:00 12/13/18 08:59 UNV Throat Lozenges (Cepacol Sore Throat Lozenge) 1 each PRN PRN MM SORE THROAT 11/12/18 12:30 12/12/18 12:29 UNV Famotidine (Pepcid) 20 mg DAILY PO 11/13/18 09:00 12/13/18 08:59 UNV Cefazolin Sodium/ Dextrose (Ancef 2 Gm/D5W 50ml) 2 gm Q8 IV 11/12/18 14:00 11/13/18 06:01 UNV Ketorolac Tromethamine (Toradol) 30 mg Q6HR PRN IV PAIN 11/12/18 12:30 11/17/18 12:29 UNV Sodium Chloride 100 ml @ STK-MED ONCE IV 11/12/18 12:58 11/12/18 13:00 DC Course Sepsis Screening Results: Posi: NEGATIVE Sepsis Qualifier/Stage: NO DEFINITE RISK Vitals & review Data Vital Sign - Last 24 Hours 11/12/18 11/12/18 11/12/18 11/12/18 05:50 05:50 07:15 07:20 Temp 99.1 99.1 Pulse 115 89 98 Resp 18 18 18 B/P (MAP) 121/72 (88) 134/80 (98) 116/47 (70) Pulse Ox 94 90 95 O2 Delivery Room Air Room Air Nasal [place] Nasal [place] O2 Flow Rate 3 3 11/12/18 11/12/18 11/12/18 11/12/18 07:25 12:07 12:07 12:22 Temp 98.2 98.6 98.2 98.6 Pulse 87 92 85 Resp 18 16 18 B/P (MAP) 119/64 (82) 139/89 (106) 144/82 (102) Pulse Ox 95 97 93 O2 Delivery Nasal [place] Non-Rebreather Nasal Canula O2 Flow Rate 3 10 10 3 11/12/18 11/12/18 12:36 12:52 Temp 99 99.2 99.0 99.2 Pulse 110 97 Resp 18 18 B/P (MAP) 125/90 (102) 125/81 (96) Pulse Ox 93 93 O2 Delivery Nasal [place] Nasal [place] O2 Flow Rate 3 3 Laboratory Tests Test 11/12/18 04:30 Urine Collection Type VOID Urine Color YELLOW Urine Appearance CLEAR Urine Bilirubin NEGATIVE MG/DL Urine Ketones NEGATIVE Urine Specific [place] 1.010 Urine pH 6 Urine Protein NEGATIVE Urine Urobilinogen NORMAL Urine Nitrate NEGATIVE Urine Leukocyte Esterase 100/ul 1+ Urine Blood 10 TR Urine RBC 0-2 RBC/HPF Urine WBC 2-5 WBC/HPF Urine Squamous Epithelial Cells MANY #/HPF Urine Bacteria NONE SEEN Urine Glucose NORMAL Current Medications Medications (Trade) Dose Ordered Sig/Lianna PRN Reason Start Time Stop Time Status Last Admin Acetaminophen (Tylenol) 1,000 mg Q6H 11/12/18 12:30 12/12/18 12:29 UNV Albuterol Sulfate (Ventolin) 2.5 mg OT PRN WHEEZING 11/12/18 12:30 11/17/18 12:29 UNV Cefazolin Sodium/ Dextrose (Ancef 2 Gm/D5W 50ml) 2 gm Q8 11/12/18 14:00 11/13/18 06:01 UNV Celecoxib (Celebrex) 200 mg Q12HR 11/12/18 21:00 11/12/18 21:01 UNV Docusate Sodium (Colace) 100 mg DAILY 11/13/18 09:00 12/13/18 08:59 UNV Famotidine (Pepcid) 20 mg DAILY 11/13/18 09:00 12/13/18 08:59 UNV Fentanyl Citrate (Sublimaze) 12.5 mcg Q5MIN PRN PAIN 11/12/18 12:30 11/13/18 12:29 UNV Gabapentin (Neurontin) 400 mg Q24HRS 11/13/18 12:30 11/13/18 12:31 UNV Hydromorphone HCl (Dilaudid) 0.2 mg Q5MIN PRN PAIN MILD 11/12/18 12:30 11/13/18 12:29 UNV Ketorolac Tromethamine (Toradol) 30 mg Q6HR PRN PAIN 2/14/19 12:30 11/17/18 12:29 UNV Ondansetron HCl (Zofran) 4 mg PRN PRN nv 11/12/18 12:30 11/17/18 12:29 UNV Promethazine HCl (Phenergan) 6.25 mg PRN PRN NAUSEA / VOMITING 11/12/18 12:30 11/17/18 12:29 UNV Rivaroxaban (Xarelto) 10 mg DAILY 11/14/18 09:00 12/14/18 08:59 UNV Throat Lozenges (Cepacol Sore Throat Lozenge) 1 each PRN PRN SORE THROAT 11/12/18 12:30 12/12/18 12:29 UNV Tramadol HCl (Ultram) 50 mg Q6H PRN MILD PAIN 11/12/18 12:30 12/12/18 12:29 UNV Tramadol HCl (Ultram) 100 mg Q6H PRN SEVERE PAIN 11/12/18 12:30 12/12/18 12:29 UNV Sepsis Infection Criteria Pres: None LEVEL 1 SEPSIS INFECTION CRITE: ABX Therapy, Recent Invasive Procedure LEVEL 2-SIRS (LIST ALL THAT AP: None/Not assessed Cardiovascular Evidence: Not Assessed or None Hematologic Evidence: None/Not assessed Hepatic Evidence: None/Not assessed Metabolic Evidence: None/Not assessed Neurological Evidence: None/Not assessed Respiratory Evidence: None/Not assessed Renal Evidence: None/Not assessed O2 Sat by Pulse Oximetry: 91 Oxygen Flow Rate: 1.00 STEPHEN CANNON MD Nov 14, 2018 09:03
--- NOTE | 2018-11-14 09:30 | NUR ---
BOWEL MOVEMENT PATIENT HAD VERY LARGE BOWEL MOVEMENT AT THIS TIME. SKIN CARE AND PATSY-CARE WERE PROVIDED, AND LINENS WERE CHANGED. DENIES ADDITIONAL NEEDS AT THIS TIME. CALL LIGHT IN REACH, WILL CONTINUE TO MONITOR.
[2018-11-14] MEDS: PEPCID PO SCH (09:45)
[2018-11-14] MEDS: XARELTO PO SCH (09:45)
[2018-11-14] MEDS: ULTRAM PO PRN ×5 (09:46→23:42)
--- NOTE | 2018-11-14 09:52 | NUR ---
ASSISTED PATIENT UP TO THE CHAIR AT THIS TIME USING GAIT BELT AND WALKER. BLE ELEVATED, CALL LIGHT IN REACH. WILL CONTINUE TO MONITOR.
[2018-11-14 10:19] VITALS: BP 126/66
--- NOTE | 2018-11-14 15:29 | NUR ---
STATUS PATIENT RESTING IN BED AT THIS TIME WITH BLE ELEVATED. AQUACEL DRESSING INTACT TO LLE, DRY. PATIENT RATES PAIN AT 3/10, DENIES UNMET NEEDS. RESPIRATIONS EVEN, NON-LABORED. IV SITE PATENT, SALINE LOCKED. CALL LIGHT IN REACH, BED IS LOW AND LOCKED. WILL CONTINUE TO MONITOR.
[2018-11-14 15:36] VITALS: BP 135/67
[2018-11-14 19:57] VITALS: BP 132/65
[2018-11-14 23:55] VITALS: BP 130/80
[2018-11-15 05:05] VITALS: BP 132/77
[2018-11-15] MEDS: ULTRAM PO PRN ×5 (05:25→20:02)
[2018-11-15] MEDS: LACTATED RINGERS 1,000 ML IV SCH (06:00)
--- NOTE | 2018-11-15 07:00 | NUR ---
REPORT RECEIVED REPORT, ASSUMED CARE FOR PATIENT AT THIS TIME.
[2018-11-15] MEDS: TYLENOL PO SCH ×3 (07:21→20:03)
[2018-11-15 08:21] LABS: HEMOGLOBIN 10.5 g/dL (12.0-15.0); MEAN CELL HGB CONCENTRATION 32.4 g/dL (33-37); MEAN CORP VOLUME 83.3 fL (78-100); MEAN PLATELET VOLUME 9.1 fL (7.8-11.0); RED CELL DISTRIBUTION WIDTH 17.3 % (11.5-14.5); WHITE BLOOD CELL 5.8 10^3/uL (4.5-11.0)
[2018-11-15] MEDS: COLACE PO SCH (09:00)
[2018-11-15] MEDS: PEPCID PO SCH (09:13)
[2018-11-15] MEDS: XARELTO PO SCH (09:13)
[2018-11-15 09:22] VITALS: BP 122/79
--- NOTE | 2018-11-15 10:30 | NUR ---
PATIENT AMBULATING IN HALLWAY AT THIS TIME.
[2018-11-15 12:00] VITALS: BP 122/79
[2018-11-15 17:38] VITALS: BP 128/74
--- NOTE | 2018-11-15 18:49 | NUR ---
REPORT REPORT GIVEN TO ONCOMING SHIFT, RELINQUISHED CARE FOR PATIENT AT THIS TIME.
[2018-11-15 19:55] VITALS: BP 149/90
[2018-11-15] MEDS: TORADOL IV PRN (22:06)
[2018-11-16] MEDS: ULTRAM PO PRN ×4 (00:22→09:28)
[2018-11-16 00:53] VITALS: BP 134/82
[2018-11-16 05:20] VITALS: BP 156/94
[2018-11-16] MEDS: LACTATED RINGERS 1,000 ML IV SCH (06:00)
[2018-11-16] MEDS: TYLENOL PO SCH ×3 (06:03→13:11)
[2018-11-16 08:38] VITALS: BP 160/82
[2018-11-16] MEDS: XARELTO PO SCH (09:27)
[2018-11-16] MEDS: COLACE PO SCH (09:27)
[2018-11-16] MEDS: PEPCID PO SCH (09:27)
--- NOTE | 2018-11-16 11:25 | PRM.PN ---
Subjective Subjective Date: Nov 16, 2018 Time: 11:24 Subjective Awake and alert VSS NVM+ Stable 11/13 Pain ok in bed VSS NVM+ HGB 10.9 postop anemia from blood loss expected Start PT 11/14 Making progress with PT VSS HGB 10 Dressing ok Cont with PT 11/15 Alert and oriented Pain ok NA 125 Will dc Independent with PT 11/16 Slow to progress with PT Afebrile VSS Wounds ok Will dc to [facility] Patient History: Alzheimer's disease 32 MOTHER, , Age:94 33 FATHER, , Age:92 Cerebrovascular disorder G8 BROTHER, Degenerative joint disease V19 CHILD Diabetes mellitus V19 CHILD V19 CHILD V19 CHILD FH: arthritis V19 CHILD FH: liver cancer G8 SISTER, , Age:50 FH: pancreatic cancer G8 SISTER, , Age:50 GERD V19 CHILD High cholesterol V19 CHILD No known health problems G8 BROTHER G8 BROTHER G8 BROTHER No Family History of: Asthma Chronic obstructive pulmonary disease Congestive heart failure Diabetes insipidus Hypertension Parkinson's disease VTE VTE Risk Total Score: 5 VTE Risk Score VTE Risk: Score 0-1 = Low Risk (Aggressive mobilization; early ambulation; no VTE prophylaxis required) Score 2: Moderate Risk (Intermittent/Pneumatic Compression Device OR Lovenox/Heparin/Coumadin) Score 3-4: High Risk (Intermittent/Pneumatic Compression Device AND Lovenox/Heparin/Coumadin) Score > or =5: Highest Risk (Intermittent/Pneumatic Compression Device AND Lovenox/Heparin/Coumadin) Review of Systems Allergies: Coded Allergies: morphine (Verified Allergy, Unknown, NAUSEA,VOMITING, 11/03/18) Scheduled Albuterol Sulfate (Albuterol Sulfate), 2.5 MG IH BID, (Reported) Albuterol Sulfate (Albuterol Sulfate), 1.25 MG IH BID, (Reported) Cyclobenzaprine Hcl (Flexeril), 1 TAB PO BID, (Reported) Mometasone Furoate (Asmanex), 2 PUFF IH BID, (Reported) Oxycodone Hcl (Oxycodone Hcl), 1 TAB PO BID, (Reported) Sertraline Hcl (Zoloft), 1 TAB PO DAILY, (Reported) Simvastatin (Zocor), 1 TAB PO HS, (Reported) Umeclidinium Brm/Vilanterol Tr (Anoro Ellipta 62.5-25 Mcg INH), 1 EACH IH DAILY24, (Reported) Varenicline Tartrate (Chantix), 1 EACH PO BID, (Reported) Scheduled PRN Acetaminophen (Acetaminophen), 2 TAB PO DAILY24 PRN for PAIN, (Reported) Tramadol Hcl (Ultram), 1 TAB PO BID PRN for PAIN, (Reported) Discontinued Medications Amoxicillin/Potassium Clav (Amox Tr-K Clv 875-125 Mg Tab), 1 TAB PO BID, ( Reported) Discontinued Reason: No Longer Taking Benzonatate (Tessalon Perle), 1 CAP PO TID, (Reported) Discontinued Reason: No Longer Taking Objective Vitals and I/O Vital Sign - Last 24 Hours 11/12/18 11/12/18 11/12/18 11/12/18 05:50 05:50 07:15 07:20 Temp 99.1 99.1 Pulse 115 89 98 Resp 18 18 18 B/P (MAP) 121/72 (88) 134/80 (98) 116/47 (70) Pulse Ox 94 90 95 O2 Delivery Room Air Room Air Nasal [place] Nasal Canula O2 Flow Rate 3 3 11/12/18 11/12/18 11/12/18 11/12/18 07:25 12:07 12:07 12:22 Temp 98.2 98.6 98.2 98.6 Pulse 87 92 85 Resp 18 16 18 B/P (MAP) 119/64 (82) 139/89 (106) 144/82 (102) Pulse Ox 95 97 93 O2 Delivery Nasal [place] Non-Rebreather Nasal Canula O2 Flow Rate 3 10 10 3 11/12/18 11/12/18 12:36 12:52 Temp 99 99.2 99.0 99.2 Pulse 110 97 Resp 18 18 B/P (MAP) 125/90 (102) 125/81 (96) Pulse Ox 93 93 O2 Delivery Nasal [place] Nasal [place]ula O2 Flow Rate 3 3 All Results(Lab/Rad) Laboratory Tests Test 11/12/18 04:30 Urine Collection Type VOID Urine Color YELLOW Urine Appearance CLEAR Urine Bilirubin NEGATIVE MG/DL Urine Ketones NEGATIVE Urine Specific [place] 1.010 Urine pH 6 Urine Protein NEGATIVE Urine Urobilinogen NORMAL Urine Nitrate NEGATIVE Urine Leukocyte Esterase 100/ul 1+ Urine Blood 10 TR Urine RBC 0-2 RBC/HPF Urine WBC 2-5 WBC/HPF Urine Squamous Epithelial Cells MANY #/HPF Urine Bacteria NONE SEEN Urine Glucose NORMAL Current Medications Medications (Trade) Dose Ordered Sig/Lianna Route PRN Reason Start Time Stop Time Status Last Admin Dose Admin Sodium Chloride 100 ml @ ud STK-MED ONCE IV 11/12/18 05:14 11/12/18 05:16 DC Cefazolin Sodium/ Dextrose 50 ml @ ud STK-MED ONCE IV 11/12/18 05:15 11/12/18 05:17 DC Neostigmine Methylsulfate (Neostigmine) 10 mg STK-MED ONCE .ROUTE 11/12/18 06:47 11/12/18 06:49 DC Ondansetron HCl (Zofran) 4 mg STK-MED ONCE .ROUTE 11/12/18 06:47 11/12/18 06:49 DC Ketorolac Tromethamine (Toradol) 30 mg STK-MED ONCE .ROUTE 11/12/18 06:47 11/12/18 06:49 DC Rocuronium [place] (Zemuron) 100 mg STK-MED ONCE IV 11/12/18 06:47 11/12/18 06:49 DC Hydromorphone HCl (Dilaudid) 2 mg STK-MED ONCE .ROUTE 11/12/18 06:47 11/12/18 06:49 DC Fentanyl Citrate (Sublimaze) 100 mcg STK-MED ONCE .ROUTE 11/12/18 06:48 11/12/18 06:50 DC Propofol (Diprivan) 200 mg STK-MED ONCE IV 11/12/18 06:48 11/12/18 06:50 DC Dexamethasone Sodium Phosphate (Decadron) 20 mg STK-MED ONCE .ROUTE 11/12/18 06:48 11/12/18 06:50 DC Bupivacaine HCl (Sensorcaine 0.5% Vial) 5 mg STK-MED ONCE .ROUTE 11/12/18 06:48 11/12/18 06:50 DC Lidocaine HCl (Lidocaine 2% Vial) 500 mg STK-MED ONCE .ROUTE 11/12/18 06:49 11/12/18 06:50 DC Dexmedetomidine HCl (Precedex) 200 mcg STK-MED ONCE IV 11/12/18 06:49 11/12/18 06:51 DC Sodium Chloride (Sodium Chloride) 1,000 ml STK-MED ONCE IR 11/12/18 07:29 11/12/18 07:31 DC Sodium Chloride 100 ml @ ud STK-MED ONCE IV 11/12/18 07:29 11/12/18 07:31 DC Sodium Chloride 250 ml @ ud STK-MED ONCE IV 11/12/18 07:29 11/12/18 07:31 DC Sodium Chloride (NS 3000ml Irr) 3,000 ml STK-MED ONCE IR 11/12/18 07:29 11/12/18 07:31 DC Tranexamic Acid (Tranexamic Acid) 1,000 mg STK-MED ONCE IV 11/12/18 07:41 11/12/18 07:43 DC Sodium Chloride (Sodium Chloride) 1,000 ml STK-MED ONCE IR 11/12/18 09:30 11/12/18 09:32 DC Tranexamic Acid (Tranexamic Acid) 1,000 mg STK-MED ONCE IV 11/12/18 11:11 11/12/18 11:13 DC Acetaminophen (Tylenol) 1,000 mg Q6H PO 11/12/18 12:30 12/12/18 12:29 UNV Celecoxib (Celebrex) 200 mg Q12HR PO 11/12/18 21:00 11/12/18 21:01 UNV Gabapentin (Neurontin) 400 mg Q24HRS PO 11/13/18 12:30 11/13/18 12:31 UNV Hydromorphone HCl (Dilaudid) 0.2 mg Q5MIN PRN IV PAIN MILD 11/12/18 12:30 11/13/18 12:29 UNV Fentanyl Citrate (Sublimaze) 12.5 mcg Q5MIN PRN IV PAIN 11/12/18 12:30 11/13/18 12:29 UNV Ondansetron HCl (Zofran) 4 mg PRN PRN IV nv 11/12/18 12:30 11/17/18 12:29 UNV Promethazine HCl (Phenergan) 6.25 mg PRN PRN IV NAUSEA / VOMITING 11/12/18 12:30 11/17/18 12:29 UNV Albuterol Sulfate (Ventolin) 2.5 mg OT PRN IH WHEEZING 11/12/18 12:30 11/17/18 12:29 UNV Tramadol HCl (Ultram) 50 mg Q6H PRN PO MILD PAIN 11/12/18 12:30 12/12/18 12:29 UNV Tramadol HCl (Ultram) 100 mg Q6H PRN PO SEVERE PAIN 11/12/18 12:30 12/12/18 12:29 UNV Rivaroxaban (Xarelto) 10 mg DAILY PO 11/14/18 09:00 12/14/18 08:59 UNV Docusate Sodium (Colace) 100 mg DAILY PO 11/13/18 09:00 12/13/18 08:59 UNV Throat Lozenges (Cepacol Sore Throat Lozenge) 1 each PRN PRN MM SORE THROAT 11/12/18 12:30 12/12/18 12:29 UNV Famotidine (Pepcid) 20 mg DAILY PO 11/13/18 09:00 12/13/18 08:59 UNV Cefazolin Sodium/ Dextrose (Ancef 2 Gm/D5W 50ml) 2 gm Q8 IV 11/12/18 14:00 11/13/18 06:01 UNV Ketorolac Tromethamine (Toradol) 30 mg Q6HR PRN IV PAIN 11/12/18 12:30 11/17/18 12:29 UNV Sodium Chloride 100 ml @ ud STK-MED ONCE IV 11/12/18 12:58 11/12/18 13:00 DC Course Sepsis Screening Results: Posi: NEGATIVE Sepsis Qualifier/Stage: NO DEFINITE RISK Vitals & review Data Vital Sign - Last 24 Hours 11/12/18 11/12/18 11/12/18 11/12/18 05:50 05:50 07:15 07:20 Temp 99.1 99.1 Pulse 115 89 98 Resp 18 18 18 B/P (MAP) 121/72 (88) 134/80 (98) 116/47 (70) Pulse Ox 94 90 95 O2 Delivery Room Air Room Air Nasal [place] Nasal [place] O2 Flow Rate 3 3 11/12/18 11/12/18 11/12/18 11/12/18 07:25 12:07 12:07 12:22 Temp 98.2 98.6 98.2 98.6 Pulse 87 92 85 Resp 18 16 18 B/P (MAP) 119/64 (82) 139/89 (106) 144/82 (102) Pulse Ox 95 97 93 O2 Delivery Nasal [place] Non-Rebreather Nasal [place] O2 Flow Rate 3 10 10 3 11/12/18 11/12/18 12:36 12:52 Temp 99 99.2 99.0 99.2 Pulse 110 97 Resp 18 18 B/P (MAP) 125/90 (102) 125/81 (96) Pulse Ox 93 93 O2 Delivery Nasal [place] Nasal [place] O2 Flow Rate 3 3 Laboratory Tests Test 11/12/18 04:30 Urine Collection Type VOID Urine Color YELLOW Urine Appearance CLEAR Urine Bilirubin NEGATIVE MG/DL Urine Ketones NEGATIVE Urine Specific [place] 1.010 Urine pH 6 Urine Protein NEGATIVE Urine Urobilinogen NORMAL Urine Nitrate NEGATIVE Urine Leukocyte Esterase 100/ul 1+ Urine Blood 10 TR Urine RBC 0-2 RBC/HPF Urine WBC 2-5 WBC/HPF Urine Squamous Epithelial Cells MANY #/HPF Urine Bacteria NONE SEEN Urine Glucose NORMAL Current Medications Medications (Trade) Dose Ordered Sig/Lianna PRN Reason Start Time Stop Time Status Last Admin Acetaminophen (Tylenol) 1,000 mg Q6H 11/12/18 12:30 12/12/18 12:29 UNV Albuterol Sulfate (Ventolin) 2.5 mg OT PRN WHEEZING 11/12/18 12:30 11/17/18 12:29 UNV Cefazolin Sodium/ Dextrose (Ancef 2 Gm/D5W 50ml) 2 gm Q8 11/12/18 14:00 11/13/18 06:01 UNV Celecoxib (Celebrex) 200 mg Q12HR 11/12/18 21:00 11/12/18 21:01 UNV Docusate Sodium (Colace) 100 mg DAILY 11/13/18 09:00 12/13/18 08:59 UNV Famotidine (Pepcid) 20 mg DAILY 11/13/18 09:00 12/13/18 08:59 UNV Fentanyl Citrate (Sublimaze) 12.5 mcg Q5MIN PRN PAIN 11/12/18 12:30 11/13/18 12:29 UNV Gabapentin (Neurontin) 400 mg Q24HRS 11/13/18 12:30 11/13/18 12:31 UNV Hydromorphone HCl (Dilaudid) 0.2 mg Q5MIN PRN PAIN MILD 11/12/18 12:30 11/13/18 12:29 UNV Ketorolac Tromethamine (Toradol) 30 mg Q6HR PRN PAIN 11/12/18 12:30 11/17/18 12:29 UNV Ondansetron HCl (Zofran) 4 mg PRN PRN nv 11/12/18 12:30 11/17/18 12:29 UNV Promethazine HCl (Phenergan) 6.25 mg PRN PRN NAUSEA / VOMITING 11/12/18 12:30 11/17/18 12:29 UNV Rivaroxaban (Xarelto) 10 mg DAILY 11/14/18 09:00 12/14/18 08:59 UNV Throat Lozenges (Cepacol Sore Throat Lozenge) 1 each PRN PRN SORE THROAT 11/12/18 12:30 12/12/18 12:29 UNV Tramadol HCl (Ultram) 50 mg Q6H PRN MILD PAIN 11/12/18 12:30 12/12/18 12:29 UNV Tramadol HCl (Ultram) 100 mg Q6H PRN SEVERE PAIN 11/12/18 12:30 12/12/18 12:29 UNV Sepsis Infection Criteria Pres: None LEVEL 1 SEPSIS INFECTION CRITE: ABX Therapy, Recent Invasive Procedure LEVEL 2-SIRS (LIST ALL THAT AP: None/Not assessed Cardiovascular Evidence: Not Assessed or None Hematologic Evidence: None/Not assessed Hepatic Evidence: None/Not assessed Metabolic Evidence: None/Not assessed Neurological Evidence: None/Not assessed Respiratory Evidence: None/Not assessed Renal Evidence: None/Not assessed O2 Sat by Pulse Oximetry: 95 Oxygen Flow Rate: 1.00 STEPHEN CANNON MD Nov 16, 2018 11:25
--- NOTE | 2018-11-16 12:03 | DSH ---
DATE OF DISCHARGE: 11/16/2018 ADMITTING DIAGNOSES: 1. Avascular necrosis of the left femoral head. 2. Chronic obstructive pulmonary disease. DISCHARGE DIAGNOSES: 1. Avascular necrosis of the left femoral head. 2. Chronic obstructive pulmonary disease. 3. Postoperative anemia secondary to surgery expected. OPERATIVE DATE: 11/12/2018 PROCEDURE PERFORMED: 1. Deep hardware removal, left hip. 2. Bipolar arthroplasty, left hip. CONSULTATIONS: None. COMPLICATIONS: None. SUMMARY OF ADMISSION: The patient is an 83-year-old female who underwent ORIF of intertrochanteric fracture of her left hip several years ago in [place]. The patient developed avascular necrosis of the femoral head with collapse and protrusion of her hardware into the acetabulum. The patient had severe pain and was unable to weightbear without using a walker. Prior to this, she was a community ambulator without assistance. The patient was taken to the operating room on 11/12/2018 where she underwent deep hardware removal as well as bipolar arthroplasty of the left hip. Postoperatively, the patient has done fairly well. She has had daily physical therapy and occupational therapy. She has been walking short distances with her walker, weightbearing as tolerated. Pain is fairly well controlled with p.o. pain medication. On discharge, the patient is on a regular diet. She can transfer in and out of her bed with some assistance, could ambulate short distances with her walker. The wound is benign. The patient's hemoglobin dropped to a low of 10.5, but her vital signs have remained stable as has her urine output. The patient can be discharged today to the [facility] swing bed unit. She will be instructed to use her walker and weightbear as tolerated. Leave the dressing intact for a week. She can weightbear as tolerated. She will be instructed to call my office for followup appointment when she is discharged from the [facility]. Ozzie Churchill MD DR: KAYLEIGH/abril JOB# [id number]
[2018-11-16 13:45] VITALS: BP 160/82
--- NOTE | 2018-11-16 13:45 | NUR ---
D/C D/C INSTRUCTIONS GIVEN TO PT, OBTAINED VERBAL AND WRITTEN UNDERSTANDING. NO S/S OF DISTRESS NOTED. PT OFF OF UNIT VIA W/C TO GO TO [facility] SWING BED VIA PRIVATE CAR. RELINQUISHED CARE OF PT
== END 2018-11-16 13:39 | disposition swing bed (61) | DRG 470 ==
LOC: MS 08:16 → EDPENDDISTM 11-16 13:45
PROVIDERS: ADMIT Orthopaedic Surgery; ATTEND Orthopaedic Surgery
PROC: 0QP704Z Removal of Internal Fixation Device from Left Upper Femur, Open Approach (ICD-10-PCS; 2018-11-12)
PROC: 0SRS0J9 Replacement of Left Hip Joint, Femoral Surface with Synthetic Substitute, Cemented, Open Approach (ICD-10-PCS; principal; 2018-11-12 08:13)
DX: T84.195A Other mechanical complication of internal fixation device of left femur, initial encounter (principal); M87.852 Other osteonecrosis, left femur; D62 Acute posthemorrhagic anemia; J44.9 Chronic obstructive pulmonary disease, unspecified; Y79.8 Miscellaneous orthopedic devices associated with adverse incidents, not elsewhere classified; Z90.49 Acquired absence of other specified parts of digestive tract; Z88.5 Allergy status to narcotic agent; Z87.891 Personal history of nicotine dependence; Z87.81 Personal history of (healed) traumatic fracture; Z81.8 Family history of other mental and behavioral disorders; Z82.3 Family history of stroke; Z82.61 Family history of arthritis; Z80.8 Family history of malignant neoplasm of other organs or systems; Z84.89 Family history of other specified conditions; Y92.89 Other specified places as the place of occurrence of the external cause
CPT/HCPCS: 36415; 64447; 73502; 76000; 80053; 81000; 85025; 85027; 87070; 97161; A4217; A4338; G0378; J0690; J1100; J1170; J1885; J2001; J2405; J2710; J3010; J3490; J7050; J7120; 97110-GP; 97116-GP; C1776; J8499

== ENCOUNTER 2021-04-12 06:51 | Day surgery (SDC) | payer MEDICARE, OTHER ==
[2021-04-10 14:50] VITALS: BP 126/73
--- NOTE | 2021-04-10 15:17 | PCM.EKG ---
[facility] Test Date: 2021-04-10 Test Time: 15:01:57 Pat Name: JANELLE ROSAS Department: Room: Gender: F [employer]: JEOVANY : [id number] Requested By: DUSTIN ROONEY Order Number: [id number] Reading MD: Measurements Intervals [place] Rate: 77 P: 99 MT: 212 QRS: 70 QRSD: 86 T: 76 QT: 372 QTc: 420 Interpretive Statements Sinus rhythm with 1st degree AV block No previous ECG available for comparison Please click the below link to view image of tracing.
[2021-04-10 15:18] LABS: BASOPHIL % 0.6 % (0.0-0.2); EOSINOPHIL # 0.1 10^3/uL (0.0-0.2); EOSINOPHIL % 2.7 % (0.0-5.0); LYMPHOCYTES # 0.5 10^3/uL1 (1.0-4.8); LYMPHOCYTES % 9.6 % (24.0-44.0); MEAN CORP HGB 29.7 pg (26-34); MONOCYTES # 0.6 10^3/uL (0.3-0.8); MONOCYTES % 11.1 % (5.0-12.0); RED CELL DISTRIBUTION WIDTH 14.4 % (11.5-14.5)
[2021-04-10 15:41] LABS: CALCIUM 8.7 mg/dL (8.4-10.5); CARBON DIOXIDE 31.1 mmol/L (20.0-32)
[~2021-04-12] VITALS: Ht 165.1 cm; Wt 64.9 kg
[2021-04-12 06:50] VITALS: BP 156/79
[~2021-04-12 06:51] MED LIST changes: -ANCEF 2 GM/D5W 50ML 50 ML IV ONE; +ASCO500C PO; +CALC1CAP6 PO; +CYAN50009 PO; -DECADRON ONE; -DILAUDID ONE; -DIPRIVAN IV ONE; +FLUT1DIS5 IH; +INUL2TAB4 PO; +LACTATED RINGERS 1,000 ML ONE; -LIDOCAINE 2% VIAL ONE; +MULT-419 PO; -NEOSTIGMINE ONE; -NS 100ML 100 ML IV ONE; -NS 250ML 250 ML IV ONE; -NS 3000ML IRR IR ONE; -PRECEDEX IV ONE; -SENSORCAINE 0.5% VIAL ONE; -SODIUM CHLORIDE IR ONE; -SUBLIMAZE ONE; -TORADOL ONE; -TRANEXAMIC ACID IV ONE; +VITA25006 PO; -ZEMURON IV ONE; -ZOFRAN ONE
[2021-04-12] MEDS ORDERED: LACTATED RINGERS 1,000 ML IV SCH (07:00)
[2021-04-12] MEDS ORDERED: XYLOCAINE 1%-EPI 1:100,000 ONE (07:17)
[2021-04-12] MEDS ORDERED: SODIUM CHLORIDE IRR BOTTLE IR ONE (07:17)
[2021-04-12 08:42] VITALS: BP 113/71
[2021-04-12 09:00] VITALS: BP 130/70
[2021-04-12 09:15] VITALS: BP 126/70
--- NOTE | 2021-04-12 09:27 | OPH ---
DATE OF SURGERY: 04/12/2021 DICTATOR NAME: Ozzie Churchill MD PREOPERATIVE DIAGNOSIS: Right carpal tunnel syndrome. POSTOPERATIVE DIAGNOSIS: Right carpal tunnel syndrome. OPERATIVE PROCEDURE: Right carpal tunnel release. SURGEON: Ozzie Churchill MD. ANESTHESIA: Local. TOURNIQUET TIME: 8 minutes at 300 mmHg. DRAINS: None. BLOOD LOSS: 10 mL. DESCRIPTION OF INDICATIONS: An 85-year-old female with a 10-year history of numbness and paresthesias in the median nerve distribution of the right hand. The patient has night pain as well as numbness. The patient has EMGs and nerve conduction study positive for carpal tunnel syndrome on the right. The patient has tried bracing as well as anti-inflammatories. The patient has atrophy about the thenar eminence. She demonstrates a positive Tinel sign as well as a positive Phalen's test. The patient was taken to the operating room today for right carpal tunnel release. DESCRIPTION OF PROCEDURE: The patient was placed on the operating table in the supine position. A local injection of 1% lidocaine with epinephrine was given about the base of her palm in line with the thenar crease. The patient then had the right upper extremity sterilely prepped and draped. The patient had the arm exsanguinated with an Esmarch and the tourniquet was inflated to 300. The patient had a longitudinal incision made about the base of the palm. The incision was taken through the skin and the subcutaneous tissues. The palmar fascia was opened proximally. A [place] elevator was passed beneath the transverse carpal ligament. The transverse carpal ligament was then released with a 15 blade. The nerve was visualized and there was no iatrogenic damage. The wounds were then irrigated. The nerve was decompressed proximally and distally. The patient then had the wound closed with 3-0 Ethilon in a horizontal mattress method. Compressive dressing consisting of Adaptic, 4 x 4's, cast padding and Adrian wrap was applied. She was sent to recovery in stable condition after the tourniquet was released. Ozzie Churchill MD DR: LILIAN TID: [id number] RECEIPT: [id number]
== END 2021-04-12 09:28 | disposition home or self-care (01) ==
LOC: SDC 06:51
PROVIDERS: ATTEND Orthopaedic Surgery
DX: G56.01 Carpal tunnel syndrome, right upper limb (principal); F17.200 Nicotine dependence, unspecified, uncomplicated; Z90.49 Acquired absence of other specified parts of digestive tract; Z90.710 Acquired absence of both cervix and uterus; Z98.890 Other specified postprocedural states; Z85.118 Personal history of other malignant neoplasm of bronchus and lung; Z79.899 Other long term (current) drug therapy; Z92.3 Personal history of irradiation
CPT/HCPCS: 36415; 64721; 80053; 85025; 93005; A4217; J7120 ×2